=== PATIENT | female | born 1990 | race American Indian/Alaskan Native ===

== ENCOUNTER 2019-01-09 21:29 | Outpatient (CLI) | payer BC ==
[2019-01-09 21:54] VITALS: BP 117/70
--- NOTE | 2019-01-09 23:45 | Ultrasound Report ---
PROCEDURE: US OB BPP WO NON-STRESS TECHNIQUE: Sonographic evaluation for breathing, movement, tone, and amniotic flui d volume was performed. HISTORY: decrease movement COMPARISONS: None . FINDINGS: FETUS Amniotic fluid volume Normal-score 2. At least one vertical pocket >2 cm or more in vertical axis . breathing: Normal-score 2 . movement: Normal-score 2 . tone: Normal-score 2 . Score: 8 of 8 . IMPRESSION: Normal biophysical profile . This document is electronically signed by Mandy Ornelas DO., January 09 2019 11:43:43 PM ET
--- NOTE | 2019-01-09 23:53 | Ultrasound Report ---
PROCEDURE: US OB LIMITED TECHNIQUE: Real-time limited sonographic examination was performed for evaluation of amniotic fluid volume, movement for each fetus with image documentation (1 or more fetuses). HISTORY: decrease movement COMPARISONS: None . FINDINGS: There is a single fetus in a vertex presentation. heart rate is 1 53 bpm. 4 quadrant amniotic f luid volume 15.9 cm. No other measurements are obtained on this study. IMPRESSION: Single fetus in a vertex presentation. 4 quadrant amniotic fluid volume 15.9 cm This document is electronically signed by Mandy Ornelas DO., January 09 2019 11:50:34 PM ET
== END 2019-01-10 00:50 | disposition home or self-care (01) ==
LOC: TRG 21:29
PROVIDERS: ATTEND Obstetrics & Gynecology
DX: O47.1 False labor at or after 37 completed weeks of gestation (principal); Z3A.38 38 weeks gestation of pregnancy
CPT/HCPCS: 59025; 76815; 76819